=== PATIENT | female | born 1965 | race Caucasian/White ===

== ENCOUNTER 2021-04-18 01:08 | Emergency (ER) | payer BC, OTHER ==
[2021-04-18 01:38] VITALS: BP 158/94; PULSE 100
[2021-04-18] MEDS ORDERED: LORazepam 0.5 MG Tab PO ONE (01:58)
--- NOTE | 2021-04-18 02:02 | EDM.PDOC ---
ED HPI GENERAL MEDICAL PROBLEM - General Chief Complaint: General Stated Complaint: ANXIETY/RAPID HEART RATE Time Seen by Provider: 04/18/21 02:00 Source of Information: Reports: Patient History Limitations: Reports: No Limitations - History of Present Illness INITIAL COMMENTS - FREE TEXT/NARRATIVE: Patient is a 56-year-old female presenting to the emergency room with a chief c omplaint of anxiety. Patient has no significant past medical history. Patient reports anxiety symptoms for the past 1 to 2 weeks. Patient reports a laundry list of symptoms which she has written down and brings with her. The symptoms include numbness and tingling in her extremities, rapid heart rate, tightness in her chest, feeling panicked, loss of appetite, difficulty sleeping. She reports history of anxiety many years ago but has not had issues with anxiety up until recently. She is not currently taking any medications. Patient denies any new supplements. She denies any headache, chest pain and has minimal symptoms currently. She reports long waiting times to see And states that is why she is here in the emergency room. - Related Data Allergies Allergy/AdvReac Type Severity Reaction Status Date / Time No Known Allergies Allergy Verified 04/18/21 01:38 Home Meds: Home Meds Albuterol [Proventil HFA] 1 puff INH Q4H PRN 09/02/15 [History] Cholecalciferol (Vitamin D3) [Vitamin D] 1,000 mg PO DAILY 09/02/15 [History] Famotidine [Pepcid AC] 20 mg PO BID 09/02/15 [History] hydrOXYzine HCL [Hydroxyzine HCl] 25 mg PO BEDTIME #10 tablet 04/18/21 [Rx] Past Medical History Respiratory History: Reports: Asthma, COPD Gastrointestinal History: Reports: GERD, Hiatal Hernia Musculoskeletal History: Reports: Fibromyalgia Psychiatric History: Reports: Anxiety - Infectious Disease History Infectious Disease History: Reports: None - Past Surgical History GI Surgical History: Reports: Appendectomy, Cholecystectomy Social & Family History - Family History Cardiac: Reports: Heart Valve Replacement Neurological: Reports: CVA Endocrine/Metabolic: Reports: Diabetes, type II - Tobacco Use Tobacco Use Status *Q: Former Tobacco User Used Tobacco, but Quit: Yes Month/Year Tobacco Last Used: 11/2017 - Caffeine Use Caffeine Use: Reports: Tea - Recreational Drug Use Recreational Drug Use: No - Living Situation & Occupation Living situation: Reports: Occupation: Employed ED ROS GENERAL - Review of Systems Review Of Systems: See Below Free Text/Narrative/Comment: In addition to that documented in the HPI above, the additional ROS was obtained: Constitutional: Denies fevers or chills Eyes: Denies vision changes ENMT: Denies sore throat CV: Denies chest pain Resp: Denies SOB GI: Denies vomiting or diarrhea : Denies painful urination MSK: Denies recent trauma Skin: Denies new rashes Neuro: Denies new numbness or tingling or weakness Endocrine: Denies unexpected weight loss Heme: Denies bleeding disorders ED EXAM, GENERAL - Physical Exam Exam: See Below Free Text/Narrative:: I have reviewed the triage vital signs Const: Well nourished, well developed, appears stated age Eyes: No conjunctival injection HENT: No signs of trauma or swelling, Neck supple without meningismus CV: Regular Rate Rhythm, Warm, well-perfused extremities RESP: Unlabored respiratory effort MSK: No gross deformities appreciated Skin: Warm, dry. No rashes Neuro: GCS of 15 alert, substitute nurse II-XII grossly intact. motor function of extremities grossly intact. Psych: Appropriate mood and affect. Course - Vital Signs Last Recorded V/S: Last Vital Signs Temp 36.2 C 04/18/21 01:34 Pulse 100 04/18/21 01:34 Resp 20 04/18/21 01:34 BP 158/94 H 04/18/21 01:34 Pulse Ox 98 04/18/21 01:34 - Orders/Labs/Meds Labs: Laboratory Tests 04/18/21 04/18/21 Range/Units 02:12 02:12 WBC 8.41 (3.98-10.04) K/mm3 RBC 4.90 (3.98-5.22) M/mm3 Hgb 14.4 (11.2-15.7) gm/dl Hct 42.4 (34.1-44.9) % MCV 86.5 (79.4-94.8) fl MCH 29.4 (25.6-32.2) pg MCHC 34.0 (32.2-35.5) g/dl RDW Std Deviation 39.2 (36.4-46.3) fL Plt Count 268 (182-369) K/mm3 MPV 9.3 L (9.4-12.3) fl Neut % (Auto) 66.8 (34.0-71.1) % Lymph % (Auto) 24.6 (19.3-51.7) % Gila % (Auto) 7.0 (4.7-12.5) % Eos % (Auto) 1.2 (0.7-5.8) Baso % (Auto) 0.2 (0.1-1.2) % Neut # (Auto) 5.61 (1.56-6.13) K/mm3 Lymph # (Auto) 2.07 (1.18-3.74) K/mm3 Gila # (Auto) 0.59 H (0.24-0.36) K/mm3 Eos # (Auto) 0.10 (0.04-0.36) K/mm3 Baso # (Auto) 0.02 (0.01-0.08) K/mm3 Sodium 138 (136-145) mEq/L Potassium 3.5 (3.5-5.1) mEq/L Chloride 101 (98-107) mEq/L Carbon Dioxide 25 (21-32) mEq/L Anion Gap 15.5 H (5-15) BUN 13 (7-18) mg/dL Creatinine 1.0 (0.55-1.02) mg/dL Est Cr Clr Drug Dosing 49.68 mL/min Estimated GFR (MDRD) 57 (>60) mL/min BUN/Creatinine Ratio 13.0 L (14-18) Glucose 108 H (70-99) mg/dL Calcium 10.3 H (8.5-10.1) mg/dL Total Bilirubin 0.5 (0.2-1.0) mg/dL AST 22 (15-37) U/L ALT 33 (14-59) U/L Alkaline Phosphatase 79 (46-116) U/L Total Protein 7.9 (6.4-8.2) g/dl Albumin 4.1 (3.4-5.0) g/dl Globulin 3.8 gm/dL Albumin/Globulin Ratio 1.1 (1-2) TSH 3rd Generation 3.947 H (0.358-3.74) uIU/mL Meds: Medications Discontinued Medications Generic Name Dose Route Start Last Admin Trade Name Freq PRN Reason Stop Dose Admin Lorazepam 0.5 mg 04/18/21 01:58 04/18/21 02:06 Lorazepam 0.5 Mg Tab PO 04/18/21 01:59 0.5 mg ONETIME ONE Administration Departure - Departure Time of Disposition: 03:16 Disposition: DC/Tfer to [id number] Clinical Impression: Anxiety - Discharge Information Prescriptions: hydrOXYzine HCL [Hydroxyzine HCl] 25 mg PO BEDTIME #10 tablet Referrals: Venus Cruz MANAGER R D [Primary Care Provider] - Forms: ED Department Discharge Sepsis Event Note (ED) - Evaluation Sepsis Screening Result: No Definite Risk - Focused Exam Vital Signs: Vital Signs Temp Pulse Resp BP Pulse Ox 04/18/21 01:34 36.2 C 100 20 158/94 H 98 - Assessment/Plan Assessment:: Patient is 56-year-old female presented to emergency room with complaint of panic reaction. On arrival, patient was appear mildly anxious and was slightly hypertensive. Otherwise, she had unremarkable ER course. Patient felt significantly better with administration of Ativan in the emergency room. Otherwise, her labs show evidence of hypothyroidism.. No severe anemia, electrolyte abnormality or any other significant abnormalities. Low suspicion for ACS. Patient be discharged with outpatient follow-up. Return precautions discussed as usual. Patient agrees with plan of care.
== END 2021-04-18 03:30 | disposition home or self-care (01) ==
LOC: JD.ED 01:08
DX: F41.9 Anxiety disorder, unspecified (principal); J44.9 Chronic obstructive pulmonary disease, unspecified; K21.9 Gastro-esophageal reflux disease without esophagitis; Z87.891 Personal history of nicotine dependence; Z79.899 Other long term (current) drug therapy
CPT/HCPCS: 36415; 80053; 84443; 85025; 99283; A9270

== ENCOUNTER 2021-06-22 16:43 | Emergency (ER) | payer OTHER ==
[2021-06-22 17:06] VITALS: BP 134/79; PULSE 103
== END 2021-06-22 19:05 | disposition home or self-care (01) ==
LOC: SUPCPDRO 16:43 → JD.ED 16:43
DX: F45.8 Other somatoform disorders (principal); K21.9 Gastro-esophageal reflux disease without esophagitis; Z87.891 Personal history of nicotine dependence; Z79.899 Other long term (current) drug therapy
CPT/HCPCS: 99283